=== PATIENT | female | born 1990 | race Caucasian/White ===

== ENCOUNTER 2022-01-21 14:25 | Inpatient (IN) ==
[2022-01-21] MEDS ORDERED: LACTATED RINGER'S 1,000 ML IV PRN (14:55)
[2022-01-21] MEDS ORDERED: OXYTOCIN 30 UNITS/500 ML BAG IV PRN ×2 (14:55→15:42)
--- NOTE | 2022-01-21 15:10 | History & Physical Report ---
Date of Service January 21, 2022 Assessment & Plan (1) Normal labor: Plan: IUP at 39 6/7 weeks in active laabor requesting epidural analgesia anticipate vaginal Admission and Anticipated Discharge Date Admission Date: January 21, 2022 History of Present Illness Chief Complaint: Active labor Primary Care Provider: Zuleyma Cohen PA-C Patient is a 31-year-old 3 para 2-0-0-2 white female EDC of 01/22/2022 who presents at 39-6/7 weeks in active labor. Contractions began approximately 2 hours ago and now they are currently every 2 minutes. She began leaking amniotic fluid approximately 1 hour ago. GBS is negative. has been uncomplicated. Allergies Allergy/AdvReac Type Severity Reaction Status Date / Time No Known Allergies Verified 01/20/22 15:52 Home Medications Medication Instructions Recorded Confirmed Type Lactobacillus acidophilus PO 07/03/21 01/20/22 History [Probiotic Acidophilus] docusate sodium [Dulcolax Stool PO 07/03/21 01/20/22 History Softener (dss)] prenat.vits,shalini,wbq-ausa-tngcz PO 07/03/21 01/20/22 History Patient History Medical History Abnormal Pap smear of cervix Acrochordon BCP ( control pills) initiation Condyloma acuminatum Encounter for counseling regarding contraception Encounter for IUD insertion Encounter for routine pelvic examination 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) History of varicella IUD (intrauterine device) in place Niharika 08/28/2016 IUD check up Moderate cervical dysplasia Moderate cervical dysplasia Pap smear of cervix with high grade squamous intraepithelial lesion (HGSIL) Vaginal delivery (01/28/12) Surgical History H/O colposcopy with cervical biopsy History of hand surgery History of tonsillectomy Family History Mother Murmur Dyslipidemia Denies family history of Ovarian cancer Prostate cancer Breast cancer Colorectal cancer Uterine cancer Social History Smoking Status: Never smoker Second Hand Exposure: No; Hx Alcohol Use: No Hx Substance Use: No Preferred Language: Korean Communication Ability: Effective Visual Impairment: No Limitations Hearing Ability: Normal Beliefs That Will Affect Care: None marital status details: Tal [phone] Current Living Situation: Family and Significant Other Current Living Situation Comment: lives with FOB and kids. No pets current occupational status: employed current occupation: School Nurse Review of Systems All systems reviewed & are unremarkable except as noted in HPI & below Physical Exam Constitutional: WD/WN, vitals as above Psychiatric: A+Ox3, euthymic affect Genitourinary: OB Exam Abdomen: + vertex, + estimated weight (7-8 pounds) and + regular contractions (every 2 minutes) Manual OB Exam: + cervical dilation 7 cm, + cervical effacement 90% and + station 0 OB Exam Monitor Tracing: + external FHT monitor used, + external uterine monitor used, + category I and + normal FHT variability Results & Data ([facility]) Vital Signs (Past 12 Hours) Vital Signs Pulse BP 01/21/22 14:39 69 133/68 Code Status & VTE Plan VTE Prophylaxis Plan VTE Prophylaxis will be ordered: No Coding Level of Care Code None Diagnoses Normal labor O80; Z37.9
[2022-01-21 15:13] LABS: Hemoglobin 13.9 g/dL (12.0-16.0); Mean Corpuscular Hemoglobin 33.3 pg (25-34); Mean Corpuscular Hgb Conc 34.8 g/dL (32-36); Mean Corpuscular Volume 95.7 fL (80-100); Platelet Count 225 K/uL (130-400); RDW Coefficient of Variation 13.2 % (11.5-14.5); RDW Standard Deviation 46.1 fL (36.4-46.3); Red Blood Count 4.18 M/uL (4.2-5.4); White Blood Count 13.34 K/uL (4.8-10.8)
[2022-01-21] MEDS ORDERED: BUPIVACAINE 0.25% 30 ML VIAL ONE (15:17)
[2022-01-21] MEDS ORDERED: ePHEDrine sulfate 50 MG/ML AMP ONE (15:17)
[2022-01-21] MEDS ORDERED: SODIUM CHLORIDE 0.9% INJ 10 ML VIAL ONE (15:17)
[2022-01-21] MEDS ORDERED: fentaNYL citrate 100 MCG/2 ML VIAL ONE (15:17)
[2022-01-21] MEDS ORDERED: fentaNYL 2MCG/ML ROPIVACAINE 1.25MG/ML 100 ML BAG EPI ONE (15:18)
[2022-01-21] MEDS ORDERED: ACETAMINOPHEN 325 MG TAB PO PRN (15:42)
[2022-01-21] MEDS ORDERED: BENZOCAINE 20% AER SPR 82.5 GM CAN EXT PRN (15:42)
[2022-01-21] MEDS ORDERED: HYDROCORTISONE ACETATE 25 MG SUPP PR PRN (15:42)
[2022-01-21] MEDS ORDERED: DIPHTHERIA/TETANUS/PERTUSSIS 0.5 ML SYR/VIAL IM ONE (15:42)
[2022-01-21] MEDS ORDERED: oxyCODONE/ACETAMINOPHEN 5mg/325mg TAB PO PRN (15:42)
[2022-01-21] MEDS ORDERED: bisacodyL 10 MG SUPP PR PRN (15:42)
--- NOTE | 2022-01-21 15:51 | Delivery Summary ---
Vaginal Delivery Summary Date of Service January 21, 2022 Vaginal Delivery Summary Patient is a 31-year-old 3 para 2-0-0-2 white female who presented at 39-6/7 weeks in active labor. She had ruptured membranes approximately 1 hour prior to arrival in labor and delivery. She progressed rapidly to full dilation and had a strong urge to push. She delivered a viable female over intact perineum through 2 contractions. The Rest of the delivered easily and placed on the mother's abdomen for further attention and drying. The infant was vigorous and moving all 4 limbs. After 1 minute the cord was clamped and cut. Placenta was expressed intact with a three-vessel cord. The perineum was inspected and was noted to be intact. Estimated blood loss 200 cc bleeding controlled with dilute Pitocin and fundal massage. Mother and doing well after delivery. [facility] [place] Vaginal Delivery Charge Delivery Type Details: [facility]
[2022-01-21] MEDS: IBUPROFEN 600 MG TAB PO PRN ×2 (16:08→22:38)
[2022-01-21] MEDS: DOCUSATE SODIUM 100 MG CAP PO SCH (22:38)
[2022-01-22] MEDS: IBUPROFEN 600 MG TAB PO PRN ×2 (05:44→12:14)
--- NOTE | 2022-01-22 06:53 | Obstetrical Progress Note ---
Date of Service January 22, 2022 Assessment & Plan (1) Encounter for care and examination after delivery: Plan: 31 yo PPD1 s/p at 39 6/7 weeks. -Continue routine care -Vitals reviewed- HDS, afebrile -A+, GBS-, Rubella immune -Encourage ambulation, regular diet -Pain control with ibuprofen, acetaminophen PRN -Encourage -D/c later today with F/u in 6 weeks withOB Admission and Anticipated Discharge Date Admission Date: January 21, 2022 Supervising Physician Co-Signing Physician Notes Resident Physician Supervision Note: I interviewed and examined the patient. Discussed with Dr. Ferrell and agree with findings and plan as documented in the note. Any exceptions or clarifications are listed here: [None] Documented By: Rachelle Nguyễn MD, FACOG Subjective 31 yo PPD1 s/p at 39 6/7 weeks. Pt doing well. Has no complaints at this time. Denies any pain. Has moderate lochia especially when ambulating. Otherwise eating and drinking w/o n/v. Voiding without issue. without difficulty. Has no other complaints at this time. Would like to go home when able. Review of Systems Review of Systems: All systems reviewed & are unremarkable except as noted in HPI & below Physical Exam Physical Exam: General: Alert, oriented, no acute distress Cardiac: Regular rate and rhythm, normal S1, S2. No murmurs appreciated. Respiratory: Clear to auscultation b/l with good air flow entry, symmetric chest rise and fall. No wheezes or crackles. No increased work of breathing or accessory muscle use Abdomen: Soft, nontender, nondistended. Fundus firm and palpable at 2 cm below umbilicus. No guarding or rebound. Skin: No rashes or lesions Extremities: Warm, dry, well-perfused with capillary refill <2s b/l. No lower extremity edema, erythema or swelling. Negative Alexander's sign b/l. Results & Data ([facility]) Vital Signs (Past 12 Hours) Vital Signs Temp Pulse Resp BP Pulse Ox 01/22/22 04:00 37.2 C 88 19 98/60 L 98 01/21/22 19:00 36.6 C 67 18 109/70 98
[2022-01-22 07:31] LABS: Hemoglobin 12.4 g/dL (12.0-16.0); Mean Corpuscular Hgb Conc 34.4 g/dL (32-36); Mean Corpuscular Volume 95.7 fL (80-100); Mean Platelet Volume 10.1 fL (7.4-10.4); Platelet Count 216 K/uL (130-400); RDW Coefficient of Variation 13.1 % (11.5-14.5); RDW Standard Deviation 45.4 fL (36.4-46.3); Red Blood Count 3.76 M/uL (4.2-5.4); White Blood Count 16.05 K/uL (4.8-10.8)
[2022-01-22] MEDS ORDERED: PRENATAL VITAMIN 1 TAB PO SCH (08:00)
[2022-01-22] MEDS: DOCUSATE SODIUM 100 MG CAP PO SCH (08:36)
[2022-01-22] MEDS ORDERED: bisacodyL 5 MG TABEC PO SCH (20:00)
== END 2022-01-22 17:43 | disposition home or self-care (01) | DRG 807 ==
LOC: OPB 14:25 → 4S1 14:29 → 4E1 18:33
DX: Z3A.39 39 weeks gestation of pregnancy; Z37.0 Single live birth; O42.02 Full-term premature rupture of membranes, onset of labor within 24 hours of rupture